=== PATIENT | male | born 1945 | race Caucasian/White ===

== ENCOUNTER 2016-12-19 08:38 | Inpatient (IN) | payer MEDICARE ==
[2016-11-07 15:13] VITALS: BMI 26.7
[~2016-12-19 08:38] MED LIST: NIMBEX 10 MG/5 ML VIAL IV ONE
[2016-12-19] MEDS ORDERED: LABETALOL 20 MG/4 ML SYRINGE IV PRN (08:54)
[2016-12-19] MEDS ORDERED: HYDROmorphone 1 MG INJECTION IV PRN ×2 (08:54)
[2016-12-19] MEDS ORDERED: hydrALAZINE 20 MG/ML VIAL IV PRN (08:54)
[2016-12-19] MEDS ORDERED: ONDANSETRON HCL 4 MG/2 ML VIAL IV PRN ×2 (08:54→13:10)
[2016-12-19] MEDS ORDERED: FENTANYL 100 MCG/2 ML VIAL IV PRN ×2 (08:54)
[2016-12-19] MEDS ORDERED: MEPERIDINE 25 MG/ML TUBEX IV PRN (08:54)
[2016-12-19] MEDS ORDERED: ONDANSETRON HCL 4 MG ODT TAB PO PRN (08:54)
--- NOTE | 2016-12-19 08:58 | HIM.ANES ---
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) - Focused Review of Systems Cardiac History: Yes: Hx Hypertension, Hx Afib/Aflutter (RESOLVED), Hx Cardiac Disorders, Hx Abnormal Cholesterol/Hyperlipidemia, Hx Congestive Heart Failure, Hx Deep Vein Thrombosis (12/2014) HEENT: Yes: Hx Vision Problem (PRESCRIPTION GLASSES), Other HEENT Problems Gastrointestinal: Yes: Hx Gastroesophageal Reflux Disease, Hx Gastrointestinal Disorders, Hx Chronic Constipation, Hx Colonoscopy (11/08/2016 SIGMOID MASS) Neurological/Musculoskeletal: No: Hx Neurological Disorders Psychological: Yes Hx Anxiety, Yes Hx Depression, Yes Hx Mental/Emotional Disorders HX Other Psyco/Soc Problems: PTSD Blood/Autoimmune: Yes: Hx Anemia No: Hx Blood Transfusions, Hx AIDS, Hx Hepatitis (type) Smoking Status: Former smoker Hx Echocardiogram (date): Yes (12/28/2014 EF 60%, GRADE 1 DIASTOLIC DYSFUNCTION ) Surgical History: Yes: Back (2013 LUMBAR REPAIR WITH RODS) - Focused Physical Exam Mallampati: Class II Thyromental Distance: Greater than 3 Neck: Full Range of Motion Cardiovascular/Chest: Normal Respiratory: Lungs clear Any problems with anesthesia, including nausea and vomiting?: Yes (N&V) Any relatives with a history of Malignant Hyperthermia?: No Does the patient have a history of Motion Sickness-: Yes Other: Allergies Allergy/AdvReac Type Severity Reaction Status Date / Time No Known Allergies Allergy Verified 12/19/16 08:50 Home Medications Medication Instructions Recorded Last Taken Type Amlodipine Besylate 5 mg PO DAILY 11/07/16 12/19/16 06:00 History Citalopram (anti-depressant) 40 mg PO DAILY 11/07/16 12/18/16 06:00 History [Celexa] CloNIDine (Antihypertensive) 0.2 mg PO BID 11/07/16 12/19/16 06:00 History [Catapres] Lisinopril 40 mg PO HS 11/07/16 12/18/16 18:00 History Pravastatin Sodium 40 mg PO .EVERY OTHER DAY 11/07/16 12/17/16 History Ranitidine [Zantac] 150 mg PO DAILY PRN 11/07/16 11/07/16 History Trazodone HCl 100 mg PO HS 11/07/16 12/18/16 18:00 History Cholecalciferol (Vitamin D3) 2,000 units PO DAILY 12/13/16 12/18/16 06:00 History [Vitamin D3] Lisinopril/Hydrochlorothiazide 1 tab PO DAILY 12/13/16 12/19/16 06:00 History [Lisinopril-Hctz 20-12.5 mg Tab] Height and Weight Patient's height 5 ft 8 in Patient's weight 78.018 kg BMI 26.7 - Anesthetic Plan Anesthesia Type: General ASA Class: 3 -: I have examined this patient and reviewed the medical record. The patient has been assessed prior to anesthesia. Risks and benefits of anesthesia and anesthetic technique options have been discussed and all questions answered. The patient accepts the risk and desires me to proceed with the planned anesthetic.
[2016-12-19] MEDS ORDERED: ALVIMOPAN 12 MG CAP PO ONE (09:00)
[2016-12-19] MEDS ORDERED: BUPIVACAINE 0.5% 30 ML VIAL ONE (09:15)
[2016-12-19] MEDS ORDERED: GLYCOPYRROLATE 1 MG VIAL IM ONE (10:00)
[2016-12-19] MEDS ORDERED: LIDOCAINE 100 MG PFS IV ONE (10:00)
[2016-12-19] MEDS ORDERED: ERTAPENEM 1 GM in NS 100 ML IV ONE (10:00)
[2016-12-19] MEDS ORDERED: DEXAMETHASONE 4 MG/ML VIAL IV ONE (10:00)
[2016-12-19] MEDS ORDERED: PROPOFOL 200 MG/20 ML VIAL IV ONE (10:00)
[2016-12-19] MEDS ORDERED: ONDANSETRON HCL 4 MG/2 ML VIAL IV ONE (10:00)
[2016-12-19] MEDS ORDERED: FENTANYL 250 MCG/5 ML VIAL IV ONE (10:00)
[2016-12-19] MEDS ORDERED: hydrALAZINE 20 MG/ML VIAL IM ONE (10:00)
[2016-12-19] MEDS ORDERED: SUCCINYLCHOLINE 20 MG/1 ML INJ 10 ML MDV IV ONE (10:00)
[2016-12-19] MEDS ORDERED: NEOSTIGMINE 1 MG/1 ML (1:1000) INJ 10 ML MDV IM ONE (10:00)
[2016-12-19 11:06] LABS: LEUKOCYTES/URINE NEG (NEGATIVE); NITRITE/URINE NEG (NEGATIVE); URINE OCCULT BLOOD NEG (NEG/TRACE)
--- NOTE | 2016-12-19 11:40 | HIMOPRPT ---
DATE OF PROCEDURE: 12/19/16 PREOPERATIVE DIAGNOSIS: Sigmoid colon cancer, for the clinical staging please see the history and physical POSTOPERATIVE DIAGNOSIS: Same, final pathology pending PROCEDURE: Laparoscopic sigmoid colon resection with primary anastomosis, laparoscopic mobilization of splenic flexure SURGEON: Lavelle Woods M.D. ANESTHESIA: General endotracheal SPECIMEN: Sigmoid colon. SPONGE COUNT: Correct. PACKINGS AND DRAINS: None PATIENT CONDITION: Stable. ESTIMATED BLOOD LOSS: 13 cc. OPERATIVE FINDINGS AND TECHNIQUE: With consent, the patient was brought to the operative suite, placed in supine position. Following general anesthesia, Casiano catheter was placed. The abdomen and perineal/anal areas were prepped and draped in usual fashion. Upper midline incision was made. Dissection was carried along on the musculofascial layers down the level of the fascia and peritoneal cavity was entered under direct vision. . The GelPort apparatus was placed. Abdominal cavity was insufflated with carbon dioxide. Additional trocars were then placed. A 12-mm trocar was placed in the right lower quadrant and a 5-mm trocar was placed in the right suprapubic area. In each case, skin incision was made with skin knife and trocars in the peritoneal cavity under videoscopic guidance. The tattooed area of the sigmoid colon was easily identified. The inferior mesenteric vessels/sigmoid vessels were isolated. Left ureter was identified during its course and was not traumatized during the course of dissection. Inferior mesenteric/sigmoid vessels were stapled across using the laparoscopic [place] stapling device with a vascular load. Mobilization of splenic flexure was then undertaken, this proceeded without incident. Following this, pelvic dissection was undertaken and an appropriate site at the sacral promontory was chosen for the distal resection margin. Mesenteric vessels were ligated and divided with a combination of the Harmonic Scalpel as well the vascular stapling device. The proximal rectum was stapled across using the stapling device as well. The colon was exteriorized. Proximal resection margin was identified and was freed up. Pursestring device was placed around this. Sutures were placed to make the pursestring. Colon was cut, and specimen was passed off as the sigmoid colon. The specimen was opened on the back table and the sigmoid mass/biopsy- proven cancer was identified. Grossly the mass was at least 5 cm from the distal staple line. Serial sizing was then undertaken with the sizing device, the 29 EEA sizer fitted well and a 29 EEA stapling device was chosen for the anastomosis. The anvil was placed in the proximal colon and the pursestring device was tied around this. Following this, the certified first assistant went to the perineal area, and serial dilatation of the rectal stump was accomplished using the sizers. The 29 EEA stapling device was then placed up the anal canal. The post was brought out to just above the staple line of the rectal stump. The post was attached the anvil. The stapler device was closed, fired, and brought up the anal area. The 2 excellent complete donuts were noted. The pelvic area then irrigated with saline and the rigid proctosigmoidoscope was then placed through the anal verge, and air water leak test was performed, showing no evidence of any bubbles, no evidence of any air leak. Pelvic area was suctioned free. Abdominal cavity had been irrigated and dried . There was no bloody drainage. Hemostasis was achieved. The fascia of the 12 mm trocar site was closed with 0 Vicryl suture in interrupted fashion. Seprafilm was placed in the abdominal cavity. The midline upper abdominal incision and musculofascial layers were closed using 1 PDS loop in a running fashion. Wound was irrigated and dried. Each incision was injected with 0.5% Marcaine. Each incision was closed in subcuticular fashion using 4 Monocryl suture. Abdominal wound was cleansed and dried. Dressings were applied. The patient was subsequently awakened in the operative suite, extubated in the operative suite, taken to the recovery room in stable condition. Findings as described. At termination of procedure, all instrument, sponge, and needle counts were correct. Final pathology is pending.
[2016-12-19] MEDS ORDERED: HYDROmorphone 1 MG INJECTION ONE (12:00)
[2016-12-19] MEDS ORDERED: MORPHINE PCA 50 ML IV ONE (12:23)
--- NOTE | 2016-12-19 13:02 | SC.ANESPOS ---
Post-Anesthesia Note LOC: Fully Awake Post-Anesthesia Assessment: Awake, Returned to Baseline, Hemodynamically Stable , Pain Control Adequate Phase I & II Recovery Complete: Yes Apparent Anesthesia Complication: No : N - Vital Signs Blood Pressure: 174/74 Pulse: 97 Resp Rate: 16 O2 Sat: 92 Temp: 98.1 F
[2016-12-19] MEDS ORDERED: MORPHINE PCA 50 ML IV PRN (13:10)
[2016-12-19] MEDS ORDERED: ACETAMINOPHEN 650 MG SUPP PR PRN (13:10)
[2016-12-19] MEDS ORDERED: Albuterol/Ipratropium Neb 3 ML NEB NEB PRN (13:10)
[2016-12-19] MEDS ORDERED: LORAZEPAM 2 MG/ML VIAL IV PRN (13:10)
[2016-12-19] MEDS ORDERED: ZOLPIDEM TARTRATE 5 MG TAB PO PRN (13:10)
[2016-12-19] MEDS ORDERED: IBUPROFEN 600 MG TAB PO PRN (13:10)
[2016-12-19] MEDS ORDERED: ACETAMINOPHEN 325 MG/TAB TABLET PO PRN (13:10)
[2016-12-19] MEDS ORDERED: ENALAPRILAT 1.25 MG/ML VIAL IV PRN (13:10)
[2016-12-19] MEDS ORDERED: DIPHENHYDRAMINE 25 MG CAP PO PRN (13:10)
[2016-12-19] MEDS ORDERED: PROMETHAZINE 25 MG/ML VIAL IV PRN (13:10)
[2016-12-19] MEDS ORDERED: Vaccine Screening Complete SCH (14:00)
[2016-12-19] MEDS: LR 1,000 ML IV SCH ×2 (14:09→22:03)
[2016-12-19] MEDS: Famotidine 20 mg/50 ml RTU 20 MG/50 ML IVB IV SCH (14:13)
[2016-12-19] MEDS: CloNIDine 0.2 MG TAB PO SCH (20:10)
[2016-12-19] MEDS: TRAZODONE 100 MG TAB PO SCH (20:10)
[2016-12-19] MEDS: LISINOPRIL 40 MG TAB PO SCH (20:10)
[2016-12-19] MEDS: PRAVASTATIN 40 MG TABLET PO SCH (20:10)
[2016-12-19] MEDS: OXYCODONE HCL 5 MG TABLET PO PRN (21:39)
[2016-12-19] MEDS: ENOXAPARIN 40 MG/0.4 ML PFS SQ SCH (23:55)
[2016-12-20] MEDS: Famotidine 20 mg/50 ml RTU 20 MG/50 ML IVB IV SCH ×2 (01:17→13:48)
[2016-12-20] MEDS: hydrALAZINE 20 MG/ML VIAL IV PRN ×2 (02:03→23:10)
[2016-12-20 06:48] LABS: MPV 8.7 fL (7.4-10.4)
[2016-12-20 07:25] LABS: BLOOD UREA NITROGEN 21 MG/DL (9-20); CALCIUM 8.5 MG/DL (8.4-10.2); CALCULATED OSMOLALITY 271 MOs/Kg (270-290); CHLORIDE 101 mEq/L (98-107); GLUCOSE 132 MG/DL (70-99); SODIUM LEVEL 138 mEq/L (137-146)
--- NOTE | 2016-12-20 07:42 | PCM.SURGRO ---
- Subjective Post Op Day: 1 Patient: Reports: No Flatus, No Bowel Movement. Denies: Nausea, Vomiting - Objective / Physical Exam Vital Signs: Temperature: 98.1 F (12/20/16 05:12) HR: 90 (12/20/16 05:12)RR: 18 (12/20/16 06: 26) BP: 174/67 (12/20/16 05:12)Pulse Ox: 93 (12/20/16 05:12) General: Alert Respiratory: Diminished Cardiovascular: Regular rate and rhythm Gastrointestinal: Soft, Bowel Sounds (Hypoactive), Tender (Mild at the incisions ). negative: Distended Laboratory/Diagnostics Reviewed: Laboratory Results - last 24 hr 12/19/16 12/20/16 12/20/16 08:50 05:20 05:20 WBC 14.0 H RBC 4.45 L Hgb 12.9 L Hct 38.9 L MCV 87 MCH 28.9 MCHC 33.0 RDW 14.1 Plt Count 256 MPV 8.7 Sodium 138 Potassium 4.1 Chloride 101 Carbon Dioxide 26 Anion Gap 15 BUN 21 H Creatinine 1.20 Estimated GFR (MDRD) 60 Glucose 132 H Calculated Osmolality 271 Calcium 8.5 Urine Color Yellow Urine Clarity Clear Urine pH 5.0 Ur Specific [place] 1.015 Urine Protein Neg Urine Glucose (UA) Neg Urine Ketones 1+ H Urine Occult Blood Neg Urine Nitrite Neg Urine Bilirubin Neg Urine Urobilinogen 0.2 Ur Leukocyte Esterase Neg Urine RBC 2-5 H Urine WBC 2-5 H Urine Bacteria Few Hyaline Casts 5-10 H Urine Mucus Occ - Assessment and Plan (1) Cancer of sigmoid Resolved C18.7 - MALIGNANT NEOPLASM OF SIGMOID COLON Present on Admission: Yes Comment/Plan: Postop day 1. Await return of bowel function. Await pathology. Get Casiano out. Start to mobilize more. Continue sips of liquids p.o.. Try to wean oxygen off. Control hypertension with medical antihypertensives. Continue IV fluids. Continue COUNTY ENGINEER for pain control. Continue mechanical and chemo prophylaxis for DVT prevention.
[2016-12-20] MEDS: CloNIDine 0.2 MG TAB PO SCH ×2 (08:20→19:51)
[2016-12-20] MEDS: HYDROCHLOROTHIAZIDE 12.5 MG CAP PO SCH (08:20)
[2016-12-20] MEDS: Citalopram HBr 40 MG TABLET PO SCH (08:20)
[2016-12-20] MEDS: ALVIMOPAN 12 MG CAP PO SCH ×2 (08:20→19:51)
[2016-12-20] MEDS: AMLODIPINE 5 MG TAB PO SCH (08:20)
[2016-12-20] MEDS: LISINOPRIL 20 MG TAB PO SCH (08:21)
[2016-12-20] MEDS: LR 1,000 ML IV SCH ×2 (11:53)
[2016-12-20] MEDS: ENOXAPARIN 40 MG/0.4 ML PFS SQ SCH (17:03)
[2016-12-20] MEDS: LISINOPRIL 40 MG TAB PO SCH (19:51)
[2016-12-20] MEDS: TRAZODONE 100 MG TAB PO SCH (19:51)
[2016-12-20] MEDS: ENALAPRILAT 1.25 MG/ML VIAL IV PRN (22:05)
[2016-12-21] MEDS ORDERED: DILTIAZEM 25 MG/5 ML VIAL IV ONE ×3 (00:05→03:36)
[2016-12-21] MEDS: Famotidine 20 mg/50 ml RTU 20 MG/50 ML IVB IV SCH ×2 (02:03→14:52)
[2016-12-21] MEDS: LR 1,000 ML IV SCH ×2 (02:03→14:10)
[2016-12-21 05:12] LABS: BLOOD UREA NITROGEN 13 MG/DL (9-20); CALCIUM 8.4 MG/DL (8.4-10.2); CALCULATED OSMOLALITY 261 MOs/Kg (270-290); CHLORIDE 98 mEq/L (98-107); GLUCOSE 120 MG/DL (70-99); SODIUM LEVEL 135 mEq/L (137-146)
--- NOTE | 2016-12-21 08:01 | HIMCONSMED ---
Consultation Date: 12/21/16 Requesting Physician: Lavelle Woods Consulting Doctor: Belkys Garnett Consult Reason: Dysrhythmia Patient is a very pleasant 61-year-old gentleman who presented to our hospital for surgical treatment of a colon cancer. He has a history of hypertension atrial fibrillation deep venous thrombosis of the leg diastolic heart failure esophageal reflux hyperlipidemia and urinary retention. 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 He required 2 doses of 10 mg of doubt diltiazem and then a 3rd dose of 15 mg of diltiazem to bring his heart rates down. He then had a short stretch of nonsustained V-tach and then converted into sinus rhythm. He remained in atrial fibrillation for approximately 5 hours. Patient states he had a similar problem in the past and was treated by Dr. See in [place]. States that Dr. See had him on anticoagulation but then discontinued it. He does not take an aspirin or Plavix either. Dr. Woods has asked us to consult on the patient given these episodes last night. Chief Complaint: Heart rate of 160 during the night. - Past Medical and Surgical History Cardiac History: Reports: Atrial Fibrillation, Hypertension, Congestive Heart Failure (Diastolic), Hypercholesterolemia (Familial combined hyperlipidemia) GI/ History: Reports: PMH GI Yes/No Other Systemic History: Reports: Anemia (Post hemorrhagic) Psychological History: Reports: Depression, Anxiety. Denies: Substance Use Disorder Past Surgical History: Reports: Hernia Surgery (INGUINAL) Familial combined hyperlipidemia, deep venous thrombosis, male hypogonadism. Lumbar burst fracture, rib fractures, constipation, depression, Allergies No Known Allergies Allergy (Verified 12/19/16 08:50) Home Medications Amlodipine Besylate 5 mg PO DAILY 11/07/16 Citalopram (anti-depressant) [Celexa] 40 mg PO DAILY 11/07/16 CloNIDine (Antihypertensive) [Catapres] 0.2 mg PO BID 11/07/16 Lisinopril 40 mg PO HS 11/07/16 Pravastatin Sodium 40 mg PO .EVERY OTHER DAY 11/07/16 Ranitidine [Zantac] 150 mg PO DAILY PRN 11/07/16 Trazodone HCl 100 mg PO HS 11/07/16 Cholecalciferol (Vitamin D3) [Vitamin D3] 2,000 units PO DAILY 12/13/16 Lisinopril/Hydrochlorothiazide [Lisinopril-Hctz 20-12.5 mg Tab] 1 tab PO QAM 11/17 - Social History Travel Outside of [place] in the Last 3 Months?: No Smoking Status: Former smoker Social History: Denies: Alcohol Use, Substance Use Disorder - Family History Reports: Hypertension (MOTHER), Cardiac Disorders (FATHER-CHF). Denies: Diabetes, Cancer, Stroke - Review of Systems Constitutional: No Symptoms Reported Eyes: No Symptoms Reported (No blurry vision, visual changes, eye pain, or eye redness.) Ears: No Symptoms Reported (No ear pain or discharge) Nose: No Symptoms Reported (No nasal discharge/congestion or bleeding) Mouth: No Symptoms Reported (No oropharyngeal lesions or erythema) Throat/Neck: No Symptoms Reported (No throat pain or swelling.No oropharyngeal lesions or erythema.) Respiratory: No Symptoms Reported (No cough, wheezing, or shortness of breath.) Cardiovascular: Palpitations Gastrointestinal: No Symptoms Reported (No abdominal pain, nausea, vomiting, diarrhea, constipation, or bloody stool.) Genitourinary: No Symptoms Reported (No dysuria or hematuria.) Neurological: No Symptoms Reported (No headache, dizziness, seizures, or focal weakness.) Musculoskeletal:: No Symptoms Reported Integumentary: No Symptoms Reported (no rashes or lesions) Allergic/Immunologic: No Symptoms Reported (no rashes or lesions) Hematologic: No Symptoms Reported (No chronic anemia, bleeding, or easy bruising.), Other (Lymphatics- no lymph node swelling or pain.) Endocrine: No Symptoms Reported (No thyroid issues, polyuria, or polydipsia.) Psychiatric: No Symptoms Reported (Fully oriented, with normal and appropriate affect.) - Physical Exam Vital Signs: Initial Vitals Temperature 97.7 F 12/19/16 08:52 Pulse Rate 96 12/19/16 08:52 Respiratory Rate 18 12/19/16 08:52 Blood Pressure 207/93 H 12/19/16 08:52 Pulse Oxygen Saturation 96 12/19/16 08:52 Constitutional: No apparent distress, Alert (Awake, Fully oriented. Normal and appropriate affect.Well appearing. Well nourished.), Well nourished, Well appearing Oriented to: Time, Person, Place - HEENT Head: Normal (normocephalic, atraumatic.), Other (No cervical lymphadenopathy. No supraclavicular lymphadenopathy. Neck: No palpable mass, supple , trachea midline.) Eye: Normal (pupils equal, reactive to light, and round; EOMI, Sclera white) Oropharynx: Normal (Pharynx: Moist without exudate,Gums-no swelling, No oropharyngeal lesions or erythema, Mucous membranes are dry.) Nose: No Symptoms Reported (septum midline, Nares patent, without discharge or bleeding.) Respiratory: Normal - CTA (Clear to auscultation bilaterally. No wheezing, rales , rhonchi. Chest wall movements are symmetric. No use of accessory muscles to breathe.) Cardiovascular: Normal (RRR , Normal S1, S2. No murmurs, rubs, or gallops. PMI non-displaced. Carotids: no carotid bruits. No bradycardia or tachycardia. DP pulses 2+ bilaterally.) - GI Auscultation: Normal (normal active sounds) Palpation: Normal (Soft,non distended,nontender. No hepatosplenomegaly.) Tenderness: Non tender (No rebound or guarding) Weiss's Sign: Negative - Musculoskeletal Back: Normal (Non-Tender) Extremities: Normal (Normal tone, DP pulses 2+ bilaterally, No cyanosis or edema bilaterally, FROM bilaterally.) - Integumentary Skin: Normal (Clean, dry, and intact. No rashes. No lesions.) Lymphatics: Normal (No cervical lymphadenopathy. No supraclavicular lymphadenopathy.) - Neurologic Memory Impaired: Normal Motor Function: Normal (Motor 5/5 throughout.Normal tone, Pulses 2+ No cyanosis or edema, FROM) Cranial Nerve: Normal (CN II-XII intact sensation, strength 5/5) Cerebellar: Normal (Babinski: toes downgoing bilaterally. Intact Finger to nose. Sensory grossly intact to light touch. Intact rapid alternating movements bilaterally. No pronator drift.) Mood Description: Normal (Fully oriented. Normal and appropriate affect.) Perception: Normal (Normal and appropriate affect.) - Lab Results Laboratory Tests 12/19/16 12/20/16 12/20/16 08:50 05:20 05:20 WBC 14.0 H RBC 4.45 L Hgb 12.9 L Hct 38.9 L MCV 87 MCH 28.9 MCHC 33.0 RDW 14.1 Plt Count 256 MPV 8.7 Sodium 138 Potassium 4.1 Chloride 101 Carbon Dioxide 26 Anion Gap 15 BUN 21 H Creatinine 1.20 Estimated GFR (MDRD) 60 Glucose 132 H POC Capillary Glucose Calculated Osmolality 271 Calcium 8.5 Magnesium Urine Color Yellow Urine Clarity Clear Urine pH 5.0 Ur Specific [place] 1.015 Urine Protein Neg Urine Glucose (UA) Neg Urine Ketones 1+ H Urine Occult Blood Neg Urine Nitrite Neg Urine Bilirubin Neg Urine Urobilinogen 0.2 Ur Leukocyte Esterase Neg Urine RBC 2-5 H Urine WBC 2-5 H Urine Bacteria Few Hyaline Casts 5-10 H Urine Mucus Occ 12/20/16 12/21/16 12/21/16 23:15 03:45 03:45 WBC RBC Hgb Hct MCV MCH MCHC RDW Plt Count MPV Sodium 135 L Potassium 3.5 Chloride 98 Carbon Dioxide 32 Anion Gap 9 BUN 13 Creatinine 1.00 Estimated GFR (MDRD) > 60 Glucose 120 H POC Capillary Glucose 126 H Calculated Osmolality 261 L Calcium 8.4 Magnesium 1.70 Urine Color Urine Clarity Urine pH Ur Specific [place] Urine Protein Urine Glucose (UA) Urine Ketones Urine Occult Blood Urine Nitrite Urine Bilirubin Urine Urobilinogen Ur Leukocyte Esterase Urine RBC Urine WBC Urine Bacteria Hyaline Casts Urine Mucus - Diagnostic Findings EKG obtained December 21 at 8 minutes after midnight shows atrial fibrillation with rapid ventricular response with aberrantly conducted complexes. After patient receives 3 doses of IV diltiazem repeat EKG was obtained. On December 21 at 7:55 a.m. he has a normal sinus rhythm with normal EKG with normal axes and intervals. - Assessment (1) Atrial fibrillation with RVR I48.91 - UNSPECIFIED ATRIAL FIBRILLATION Acute Present on Admission: Yes Patient presented to the hospital in sinus rhythm however he does have a history of atrial fibrillation as is documented in the medical record. He then had another episode of atrial fibrillation he states to me that in the past he has had it when he has had procedures. He has been treated by Dr. Calderon who stopped his anticoagulation. I will discuss appropriate restarting of anticoagulation with Dr. Woods but I do believe the patient will require anticoagulation. I will also rule him out for myocardial infarction and check an echocardiogram. Given that this is a recurrent problem he would benefit from seeing a transition mgr this admission and have consulted Dr. Masterson (2) Hypertension I10 - ESSENTIAL (PRIMARY) HYPERTENSION Acute Present on Admission: Yes Qualifiers: Hypertension type: essential hypertension Qualified Code(s): I10 - Essential (primary) hypertension Continue home medications as you are doing. (3) Diastolic CHF I50.30 - UNSPECIFIED DIASTOLIC (CONGESTIVE) HEART FAILURE Acute Present on Admission: Yes Qualifiers: Congestive heart failure chronicity: chronic Qualified Code(s): I50.32 - Chronic diastolic (congestive) heart failure Patient with history of congestive heart failure that is diastolic. Currently he appears to be well compensated. I will check an echocardiogram. (4) Cancer of sigmoid C18.7 - MALIGNANT NEOPLASM OF SIGMOID COLON Resolved Present on Admission: Yes (5) Familial combined hyperlipidemia E78.4 - OTHER HYPERLIPIDEMIA Chronic Present on Admission: Yes Continue home medication regimen. (6) H/O deep venous thrombosis Z86.718 - PERSONAL HISTORY OF OTHER VENOUS THROMBOSIS AND EMBOLISM Acute (7) H/O urinary retention Z87.898 - PERSONAL HISTORY OF OTHER SPECIFIED CONDITIONS Chronic Present on Admission: Yes Will check postvoid residuals. Patient with a history of this documented in medical record. - Plan Will consult Dr. Masterson. Check echocardiogram and rule out for myocardial infarction. Continue telemetry monitoring. Will discuss with Dr. Woods regarding anticoagulation. Case Care Discussed with: Patient, Consultants (Dr. Masterson, Dr. Woods), Nursing Staff Total Time: 55 minutes. Critical Care: No Couseling Time (>50% in counseling/coordination): No
--- NOTE | 2016-12-21 09:35 | PCM.CARDCO ---
Consultation Date: 12/21/16 Requesting Physician: Belkys Garnett Pattern Grader: Jasson Masterson - History of Present Illness He is a 71-year-old man retired with a background history of previous episode of atrial fibrillation who at 1 time been anticoagulated. Postop early developed brief recurrent rapid atrial fibrillation and converted to sinus rhythm after rate control. He has had no other clinical episodes no complaints of chest pain dyspnea or syncope. Today he feels well. His chads 2 score is 3 and I favor resuming anticoagulation with his high risk of stroke. Clinically the precipitant here is high catecholamines after surgery, I placed him on a beta-josé miguel and intensify his antihypertensive treatment. Chief Complaint: Paroxysmal atrial fibrillation - Past Medical and Surgical History Cardiac History: Reports: Atrial Fibrillation (Chads 2 Vasc score equals 2), Hypertension, Congestive Heart Failure (Diastolic), Hypercholesterolemia ( Familial combined hyperlipidemia) GI/ History: Reports: PMH GI Yes/No Other Systemic History: Reports: Anemia (Post hemorrhagic) Psychological History: Reports: Depression, Anxiety. Denies: Alcoholism, Substance Use Disorder Past Surgical History: Reports: Hernia Surgery (INGUINAL) Allergies No Known Allergies Allergy (Verified 12/19/16 08:50) Home Medications Amlodipine Besylate 5 mg PO DAILY 11/07/16 Citalopram (anti-depressant) [Celexa] 40 mg PO DAILY 11/07/16 CloNIDine (Antihypertensive) [Catapres] 0.2 mg PO BID 11/07/16 Lisinopril 40 mg PO HS 11/07/16 Pravastatin Sodium 40 mg PO .EVERY OTHER DAY 11/07/16 Ranitidine [Zantac] 150 mg PO DAILY PRN 11/07/16 Trazodone HCl 100 mg PO HS 11/07/16 Cholecalciferol (Vitamin D3) [Vitamin D3] 2,000 units PO DAILY 12/13/16 Lisinopril/Hydrochlorothiazide [Lisinopril-Hctz 20-12.5 mg Tab] 1 tab PO QAM 11/17 - Social History Travel Outside of [place] in the Last 3 Months?: No Smoking Status: Former smoker Social History: Denies: Alcohol Use, Substance Use Disorder - Family History Reports: Hypertension (MOTHER), Cardiac Disorders (FATHER-CHF). Denies: Diabetes, Cancer, Stroke - Review of Systems Yes All systems reviewed and were negative except as marked Constitutional: No Symptoms Reported - Cardiovascular Palpitations - Gastrointestinal Gastrointestinal: Other (NG tube remains in place) - Physical Exam Constitutional: No apparent distress, Alert (Awake, Fully oriented. Normal and appropriate affect.Well appearing. Well nourished.), Well nourished, Well appearing, Other (Looks younger than his age) Oriented to: Time, Person, Place Exam: Last Vital Signs Temp 99.7 F 12/21/16 05:55 Pulse 140 H 12/21/16 05:55 Resp 18 12/21/16 06:00 BP 151/71 12/21/16 05:55 Pulse Ox 95 12/21/16 05:55 Intake & Output 12/20/16 12/21/16 12/21/16 23:59 07:59 15:59 Intake Total 1046 602 Output Total 800 1200 Balance 246 -598 Patient's weight 172 lb 4.8 oz - HEENT Head: Normal (No bruit thyromegaly or neck vein distention), Other (No cervical lymphadenopathy. No supraclavicular lymphadenopathy. Neck: No palpable mass, supple , trachea midline.) Eye: Normal (pupils equal, reactive to light, and round; EOMI, Sclera white) Oropharynx: Normal (Pharynx: Moist without exudate,Gums-no swelling, No oropharyngeal lesions or erythema, Mucous membranes are dry.) Nose: No Symptoms Reported (septum midline, Nares patent, without discharge or bleeding.) - Respiratory/Cardiovascular Respiratory: Normal - CTA (Clear to auscultation bilaterally. No wheezing, rales , rhonchi. Chest wall movements are symmetric. No use of accessory muscles to breathe.) Cardiovascular: Normal. negative: Systolic murmur, Gallop/S3 - GI Auscultation: Normal Palpation: Normal (Soft,non distended,nontender. No hepatosplenomegaly.) Tenderness: Non tender (No rebound or guarding) - Musculoskeletal Back: Normal (Non-Tender) Extremities: Normal (Normal tone, DP pulses 2+ bilaterally, No cyanosis or edema bilaterally, FROM bilaterally.), Femoral Pulse, Pedal Pulse, Radial Pulse. negative: Calf Tenderness, Clubbing, Cyanosis, Edema, Pedal Edema - Integumentary Skin: Normal (Clean, dry, and intact. No rashes. No lesions.), Dry. negative: Diaphoretic, Pale, Mottling, Jaundice Lymphatics: Normal (No cervical lymphadenopathy. No supraclavicular lymphadenopathy.) - Neurologic Memory Impaired: Normal Cerebellar: Normal (Babinski: toes downgoing bilaterally. Intact Finger to nose. Sensory grossly intact to light touch. Intact rapid alternating movements bilaterally. No pronator drift.) Mood Description: Normal (Fully oriented. Normal and appropriate affect.) Perception: Normal (Normal and appropriate affect.) - Lab Results Monitor strip shows in sinus rhythm today Echocardiogram is normal with exception of mild left atrial enlargement Laboratory Tests 12/20/16 12/21/16 12/21/16 05:20 03:45 08:23 WBC 14.0 H Hgb 12.9 L Hct 38.9 L Potassium 3.5 Creatinine 1.00 Troponin I 0.10 12/21/16 12/21/16 11:00 14:15 WBC Hgb Hct Potassium Creatinine Troponin I 0.08 0.08 - Assessment/Plan (1) Atrial fibrillation with RVR I48.91 - UNSPECIFIED ATRIAL FIBRILLATION Acute Comment: Paroxysmal heard his chads 2 Vasc score is 3 and should be anticoagulated long- term once he is judged to be acceptable bleeding risk after surgery. The episode occurred in the postoperative state with high catecholamines and I would place him on a beta-josé miguel and if he has recurrent episodes consider an anti arrhythmic. He will Require cardiology follow-up afterwards. For completeness I would check a postoperative troponin. Also check thyroid TSH tomorrow for completeness. (2) Diastolic CHF I50.30 - UNSPECIFIED DIASTOLIC (CONGESTIVE) HEART FAILURE Chronic chronic I50.32 - Chronic diastolic (congestive) heart failure Comment: Compensated note he is not on loop diuretic. His indices of diastolic function do not show elevated filling pressures at this time. (3) Hypertension I10 - ESSENTIAL (PRIMARY) HYPERTENSION Acute essential hypertension I10 - Essential (primary) hypertension Comment: Poorly controlled, started on carvedilol and was given extra dose of clonidine. Case Care Discussed with: Patient, Nursing Staff
[2016-12-21] MEDS: CloNIDine 0.2 MG TAB PO SCH ×2 (10:18→20:59)
[2016-12-21] MEDS: AMLODIPINE 5 MG TAB PO SCH (10:19)
[2016-12-21] MEDS: Citalopram HBr 40 MG TABLET PO SCH (10:20)
[2016-12-21] MEDS: LISINOPRIL 20 MG TAB PO SCH (10:21)
[2016-12-21] MEDS: HYDROCHLOROTHIAZIDE 12.5 MG CAP PO SCH (10:21)
[2016-12-21] MEDS: ALVIMOPAN 12 MG CAP PO SCH ×2 (10:22→20:59)
[2016-12-21] MEDS: ENALAPRILAT 1.25 MG/ML VIAL IV PRN ×2 (11:50→22:09)
[2016-12-21] MEDS: hydrALAZINE 20 MG/ML VIAL IV PRN ×2 (12:31→23:23)
--- NOTE | 2016-12-21 13:25 | PCM.SURGRO ---
- Subjective Chief Complaint: Patient reportedly went into atrial fibrillation with rapid ventricular response and also had a run of ventricular tachycardia. The hospitalist service was kind enough to handle these medical issues. However I was not informed of any of these from the nursing staff last night. Dr. Villa was kind enough to inform me of the patient's clinical status this morning. The hospitalist service has been kind enough to consult and has consulted Cardiology for further management. Patient states that he has some abdominal pain currently. He denies any flatus or bowel movement. He states he has burped but has had no nausea or vomiting. He has had no fever spikes. His dysrhythmia responded to diltiazem. Remains on the monitor now. Post Op Day: 2 Patient: Reports: Other - Objective / Physical Exam Vital Signs: Temperature: 99.8 F (12/21/16 11:50) HR: 90 (12/21/16 12:34)RR: 18 (12/21/16 12: 00) BP: 207/83 (12/21/16 12:34)Pulse Ox: 99 (12/21/16 11:50) General: Alert Respiratory: Diminished Cardiovascular: Regular rate and rhythm Gastrointestinal: Soft, Tender (Mild at the incisions). negative: Distended, Bowel Sounds Laboratory/Diagnostics Reviewed: Laboratory Results - last 24 hr 12/20/16 12/21/16 12/21/16 23:15 03:45 03:45 Sodium 135 L Potassium 3.5 Chloride 98 Carbon Dioxide 32 Anion Gap 9 BUN 13 Creatinine 1.00 Estimated GFR (MDRD) > 60 Glucose 120 H POC Capillary Glucose 126 H Calculated Osmolality 261 L Calcium 8.4 Magnesium 1.70 Troponin I 12/21/16 12/21/16 08:23 11:00 Sodium Potassium Chloride Carbon Dioxide Anion Gap BUN Creatinine Estimated GFR (MDRD) Glucose POC Capillary Glucose Calculated Osmolality Calcium Magnesium Troponin I 0.10 0.08 - Assessment and Plan (1) 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 Await pathology. Await return of bowel function. Continue IV fluids for now. Continue pain control. Appreciate greatly the consultations for Medicine and Cardiology due to the patient's dysrhythmia. He is being appropriately managed currently. I would hold off at least another day to fully anticoagulate him. He can likely be fully anticoagulated starting 2016. Continue medical and cardiac management of his comorbid conditions.
[2016-12-21] MEDS ORDERED: CloNIDine 0.2 MG TAB PO ONE (14:00)
--- NOTE | 2016-12-21 16:12 | CAPUEKG ---
[place], [place] Test Date: 2016-12-21 Pat Name: CRISTINA JESUS Department: Room: 359 Gender: Male Reconciling Clerk: : Requested By: Order Number: Reading MD: Jasson Masterson MD Measurements Intervals [place] Rate: 88 P: 41 AR: 134 QRS: 2 QRSD: 88 T: 58 QT: 356 QTc: 430 Interpretive Statements Normal sinus rhythm Normal ECG Electronically Signed On 12-21-16 16:11:50 EST by Jasson Masterson MD <[id number]> [id number]
--- NOTE | 2016-12-21 16:13 | CAPUEKG ---
[place], [place] Test Date: 2016-12-21 Pat Name: CRISTINA JESUS Department: Room: 359 Gender: Male Medical Laboratory Technicians: : Requested By: Order Number: Reading MD: Jasson Masterson MD Measurements Intervals [place] Rate: 163 P: ME: QRS: -3 QRSD: 88 T: 154 QT: 292 QTc: 480 Interpretive Statements Atrial fibrillation with rapid ventricular response with premature ventricular or aberrantly conducted complexes Nonspecific ST and T wave abnormality, probably digitalis effect Abnormal ECG Electronically Signed On 12-21-16 16:13:08 EST by Jasson Masterson MD <[id number]> [id number]
[2016-12-21] MEDS: Aluminum;Magnesium;Simethicone 30 ML UDC PO PRN (18:43)
[2016-12-21] MEDS: ENOXAPARIN 40 MG/0.4 ML PFS SQ SCH (18:43)
[2016-12-21] MEDS: PRAVASTATIN 40 MG TABLET PO SCH (20:59)
[2016-12-21] MEDS: LISINOPRIL 40 MG TAB PO SCH (20:59)
[2016-12-21] MEDS: TRAZODONE 100 MG TAB PO SCH (20:59)
[2016-12-22] MEDS: Aluminum;Magnesium;Simethicone 30 ML UDC PO PRN (00:32)
[2016-12-22] MEDS: Famotidine 20 mg/50 ml RTU 20 MG/50 ML IVB IV SCH ×2 (02:41→14:13)
[2016-12-22] MEDS: LR 1,000 ML IV SCH ×3 (05:31→18:21)
[2016-12-22] MEDS: LISINOPRIL 20 MG TAB PO SCH (08:44)
[2016-12-22] MEDS: HYDROCHLOROTHIAZIDE 12.5 MG CAP PO SCH (08:44)
[2016-12-22] MEDS: AMLODIPINE 5 MG TAB PO SCH (08:44)
[2016-12-22] MEDS: Citalopram HBr 40 MG TABLET PO SCH (08:44)
[2016-12-22] MEDS: CloNIDine 0.2 MG TAB PO SCH ×2 (08:45→21:50)
[2016-12-22 09:59] LABS: hTSH 2.04 uIU/mL (0.5-4.67)
--- NOTE | 2016-12-22 10:38 | PCM.SURGRO ---
- Subjective Chief Complaint: incisional soreness Post Op Day: 3 (laparoscopic sigmoid colon resection) Patient: Reports: Feels better (Patient reports that he feels better today.), Bowel Movement (Patient reports three bowel movements.), Afebrile, Other ( Patient currently sitting up in chair. He denies chest pain, shortness of breath or difficulty breathing.). Denies: Voiding without difficulty (Casiano catheter in.), Nausea, Vomiting, Shortness of breath, Ambulating (Patient states that he has not ambulated in the taf[place] today.) - Objective / Physical Exam Vital Signs: Temperature: 98.9 F (12/22/16 10:24) HR: 79 (12/22/16 10:24)RR: 20 (12/22/16 10: 24) BP: 114/54 (12/22/16 10:24)Pulse Ox: 93 (12/22/16 10:24) General: Alert, Oriented x3, Cooperative, No acute distress HEENT: Normal, Anicteric Sclera, Mucous membr. moist/pink Respiratory: Normal - CTA Cardiovascular: Regular rate and rhythm Gastrointestinal: Soft, Bowel Sounds, Other (dressings intact.). negative: Distended, Tender Extremities: negative: Swelling, Edema Psych/Mental Status: Appropriate, Normal Affect, Cooperative. 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 We will continue supportive care. We will plan to increase diet and activity. Okay to start full anticoagulation from a surgical standpoint.
--- NOTE | 2016-12-22 12:23 | CAPUEKG ---
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
--- NOTE | 2016-12-22 16:45 | GENMEDPROG ---
Chief Complaint: Postop AFib RVR Subjective Note: Patient is feeling somewhat better. He understands his history of atrial fibrillation. He is willing to go on anticoagulation again. He plans to follow up with Dr. Masterson as an outpatient. Denies chest pain or shortness of breath. Current Medication List: Reviewed Currently: Reports: Abdominal Pain (Controlled). Denies: Cough, Wheezing, YEUNG, SOB, Chest Pain DVT Prophylaxis: Yes - Physical Examination Vital Signs and I&O: Last Vital Signs Temp 97.4 F L 12/22/16 14:42 Pulse 70 12/22/16 14:42 Resp 20 12/22/16 14:42 BP 128/60 12/22/16 14:42 Pulse Ox 95 12/22/16 14:42 Oxygen Pulse Oxygen Saturation 95 O2 Device Room Air Oxygen Flow Rate 1 Fraction of Inspired Oxygen ( 100 FIO2) Intake & Output 12/19/16 12/20/16 12/21/16 12/22/16 23:59 23:59 23:59 23:59 Intake Total 847 2744 2153 1111 Output Total 1325 1400 3175 1400 Balance -478 1344 -1022 -289 Patient's weight 76.884 kg 77.61 kg 78.154 kg 77.819 kg General: Alert, Oriented x3, Cooperative, No acute distress HEENT: Anicteric Sclera, Mucous membr. moist/pink Neck: Normal inspection Lymphatics: Normal Respiratory: Normal - CTA Cardiovascular: Regular rate and rhythm. negative: LE Edema GI: Normal bowel sounds, Other (Rest of exam per surgery) Extremities/Musculoskeletal: Muscle Tone. negative: Swelling, Edema Skin: Warm,Dry and Intact Neurological: Normal speech, Normal tone Psych/Mental Status: Appropriate, Normal Affect, Cooperative. negative: Agitated, Anxious Lab/DI/Studies Reviewed: 12/20/16 05:20 12/21/16 03:45 Intake & Output 12/19/16 12/20/16 12/21/16 12/22/16 23:59 23:59 23:59 23:59 Intake Total 847 2744 2153 2142 Output Total 1325 1400 3175 1600 Balance -478 1344 -1022 542 Patient's weight 76.884 kg 77.61 kg 78.154 kg 77.819 kg - Assessment (1) Atrial fibrillation with RVR Acute I48.91 - UNSPECIFIED ATRIAL FIBRILLATION Comment/Plan: He is back in sinus rhythm with addition of a beta-josé miguel. Appreciate Dr. Masterson help. The patient is willing to undergo anticoagulation. Dr. Clark note today states he he is ready for it. The patient recalls being on Eliquis in the past. (2) Hypertension Acute I10 - ESSENTIAL (PRIMARY) HYPERTENSION Qualifiers: Hypertension type: essential hypertension Qualified Code(s): I10 - Essential (primary) hypertension Comment/Plan: Continue home medications in addition to the beta-josé miguel (3) Diastolic CHF Chronic I50.30 - UNSPECIFIED DIASTOLIC (CONGESTIVE) HEART FAILURE Qualifiers: Congestive heart failure chronicity: chronic Qualified Code(s): I50.32 - Chronic diastolic (congestive) heart failure Comment/Plan: CHF is compensated without a diuretic. 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 Management per surgery (5) Familial combined hyperlipidemia Chronic E78.4 - OTHER HYPERLIPIDEMIA Comment/Plan: Continue home medication regimen. (6) H/O deep venous thrombosis Chronic Z86.718 - PERSONAL HISTORY OF OTHER VENOUS THROMBOSIS AND EMBOLISM Comment/Plan: Will be started on anticoagulation for AFib which will cover this (7) H/O urinary retention Chronic Z87.898 - PERSONAL HISTORY OF OTHER SPECIFIED CONDITIONS Comment/ Plan: Will check postvoid residuals. Patient with a history of this documented in medical record. Case Care Discussed with: Patient, Family Education/Counseling Given To: Patient, Family Member Education/Counseling Given Regarding: Diagnosis, Treatment, Prognosis Total Time: 35 minutes Critical Care: No Couseling Time (>50% in counseling/coordination): No Code: 52852 (12+)
[2016-12-22] MEDS: ENOXAPARIN 40 MG/0.4 ML PFS SQ SCH (17:03)
[2016-12-22] MEDS: TRAZODONE 100 MG TAB PO SCH (21:50)
[2016-12-22] MEDS: LISINOPRIL 40 MG TAB PO SCH (21:50)
[2016-12-23] MEDS: Famotidine 20 mg/50 ml RTU 20 MG/50 ML IVB IV SCH ×2 (01:24→13:06)
[2016-12-23] MEDS: hydrALAZINE 20 MG/ML VIAL IV PRN (05:16)
[2016-12-23] MEDS: LR 1,000 ML IV SCH ×3 (08:28→22:41)
[2016-12-23] MEDS: Citalopram HBr 40 MG TABLET PO SCH (08:28)
[2016-12-23] MEDS: AMLODIPINE 5 MG TAB PO SCH (08:29)
[2016-12-23] MEDS: LISINOPRIL 20 MG TAB PO SCH (08:29)
[2016-12-23] MEDS: CloNIDine 0.2 MG TAB PO SCH ×2 (08:29→20:31)
[2016-12-23] MEDS: HYDROCHLOROTHIAZIDE 12.5 MG CAP PO SCH (08:29)
[2016-12-23] MEDS: APIXABAN 5 MG TABLET PO SCH ×2 (08:29→20:31)
--- NOTE | 2016-12-23 15:09 | PCM.SURGRO ---
- Subjective Chief Complaint: postoperative day #4 Post Op Day: 4 (laparoscopic sigmoid colon resection with primary anastomosis) Patient: Reports: Feels better, Pain is less, Tolerating Regular Diet, Flatus, Bowel Movement, Afebrile, Ambulating in [place], Other (The patient denies chest pain or difficulty breathing.). Denies: Nausea, Vomiting, Shortness of breath - Objective / Physical Exam Vital Signs: Temperature: 98.4 F (12/23/16 14:00) HR: 72 (12/23/16 14:00)RR: 18 (12/23/16 14: 00) BP: 184/74 (12/23/16 14:00)Pulse Ox: 96 (12/23/16 14:00) General: Alert, Oriented x3, Cooperative, No acute distress HEENT: Normal, Anicteric Sclera, Mucous membr. moist/pink Respiratory: Normal - CTA Cardiovascular: Regular rate and rhythm Gastrointestinal: Soft, Bowel Sounds. negative: Distended, Tender, Guarding, Firm, Rigid, Hernia Extremities: negative: Swelling, Edema Psych/Mental Status: Appropriate, Normal Affect, Cooperative. 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 We will continue supportive care. Anticipate discharge in the next day or two. I discussed the treatment plan with the patient. All questions were answered. He voiced understanding and agreement.
--- NOTE | 2016-12-23 15:13 | GENMEDPROG ---
Subjective Note: Denies any chest pain or shortness of breath. Has been ambulating some. Feels his postoperative abdominal pain is controlled. Current Medication List: Reviewed Currently: Reports: Abdominal Pain (Controlled), Ambulating. Denies: Cough, Wheezing, YEUNG, SOB, Chest Pain DVT Prophylaxis: Yes - Physical Examination Vital Signs and I&O: Last Vital Signs Temp 98.4 F 12/23/16 14:00 Pulse 72 12/23/16 14:00 Resp 18 12/23/16 14:00 BP 184/74 H 12/23/16 14:00 Pulse Ox 96 12/23/16 14:00 Oxygen Pulse Oxygen Saturation 96 O2 Device Room Air Oxygen Flow Rate 1 Fraction of Inspired Oxygen ( 100 FIO2) Intake & Output 12/20/16 12/21/16 12/22/16 12/23/16 23:59 23:59 23:59 23:59 Intake Total 2744 2153 2142 888 Output Total 1400 3175 1600 2375 Balance 1344 -1022 542 -1487 Patient's weight 77.61 kg 78.154 kg 77.819 kg 78.245 kg General: Alert, Oriented x3, Cooperative, No acute distress HEENT: Normal, Anicteric Sclera, Mucous membr. moist/pink Neck: Normal Trachea alignment, Normal inspection Lymphatics: Normal Respiratory: Normal - CTA Cardiovascular: Regular rate and rhythm. negative: LE Edema GI: Soft Extremities/Musculoskeletal: negative: Swelling, Edema Skin: Warm,Dry and Intact, No rashes Psych/Mental Status: Appropriate, Normal Affect, Cooperative. negative: Agitated, Anxious - Assessment (1) Atrial fibrillation with RVR Acute I48.91 - UNSPECIFIED ATRIAL FIBRILLATION Comment/Plan: Patient is in sinus rhythm. Will continue with the beta-josé miguel. Eliquis was added yesterday. (2) Hypertension Acute I10 - ESSENTIAL (PRIMARY) HYPERTENSION Qualifiers: Hypertension type: essential hypertension Qualified Code(s): I10 - Essential (primary) hypertension Comment/Plan: Blood pressure continues to be mildly elevated at times. Will monitor. It is unclear if this is related to pain or not. His heart rate has been stable with his blood pressure is up. (3) Diastolic CHF Chronic I50.30 - UNSPECIFIED DIASTOLIC (CONGESTIVE) HEART FAILURE Qualifiers: Congestive heart failure chronicity: chronic Qualified Code(s): I50.32 - Chronic diastolic (congestive) heart failure Comment/Plan: CHF is compensated without a diuretic. 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 Management per surgery (5) Familial combined hyperlipidemia Chronic E78.4 - OTHER HYPERLIPIDEMIA Comment/Plan: Continue home medication regimen. (6) H/O deep venous thrombosis Chronic Z86.718 - PERSONAL HISTORY OF OTHER VENOUS THROMBOSIS AND EMBOLISM Comment/Plan: Will be started on anticoagulation for AFib which will cover this (7) H/O urinary retention Chronic Z87.898 - PERSONAL HISTORY OF OTHER SPECIFIED CONDITIONS Comment/ Plan: Will check postvoid residuals. Patient with a history of this documented in medical record. Case Care Discussed with: Patient, Consultants Education/Counseling Given To: Patient Education/Counseling Given Regarding: Diagnosis, Treatment Total Time: 30 minutes Critical Care: No Couseling Time (>50% in counseling/coordination): No Code: 12789 (12+)
[2016-12-23] MEDS: PRAVASTATIN 40 MG TABLET PO SCH (20:31)
[2016-12-23] MEDS: LISINOPRIL 40 MG TAB PO SCH (20:31)
[2016-12-23] MEDS: FAMOTIDINE 20 MG TAB PO SCH (20:31)
[2016-12-23] MEDS: TRAZODONE 100 MG TAB PO SCH (20:31)
[2016-12-23] MEDS: CARVEDILOL 6.25 MG TAB PO SCH (20:47)
[2016-12-24] MEDS: ENALAPRILAT 1.25 MG/ML VIAL IV PRN ×2 (02:59→18:07)
--- NOTE | 2016-12-24 08:06 | PCM.SURGRO ---
- Subjective Post Op Day: 5 Patient: Reports: Flatus, Bowel Movement. Denies: Nausea, Vomiting - Objective / Physical Exam Vital Signs: Temperature: 98.8 F (12/24/16 05:28) HR: 65 (12/24/16 05:28)RR: 18 (12/24/16 05: 28) BP: 175/85 (12/24/16 05:28)Pulse Ox: 93 (12/24/16 05:28) General: Alert Respiratory: Normal - CTA Cardiovascular: Regular rate and rhythm Gastrointestinal: Soft, Bowel Sounds. negative: Distended, Tender - Assessment and Plan (1) Cancer of sigmoid Resolved C18.7 - MALIGNANT NEOPLASM OF SIGMOID COLON Present on Admission: Yes Comment/Plan: Postop day 5. He has a normal sinus rhythm now. Patient is moving his bowels. He is tolerating regular diet well. He has a stable candidate for discharge home. However the patient states that he require assistance home. He states that his is ill and is unable to care for him. Will have discharge planning involved to see if we can come up with the discharge plan of either home with home health/physical therapy, an in-home nurse, or possible placement. Patient understands this. His pathology is back and was discussed. He has a stage I colon cancer.
[2016-12-24] MEDS: CloNIDine 0.2 MG TAB PO SCH ×2 (08:49→23:07)
[2016-12-24] MEDS: CARVEDILOL 6.25 MG TAB PO SCH ×2 (08:50→23:06)
[2016-12-24] MEDS: APIXABAN 5 MG TABLET PO SCH ×2 (08:50→23:06)
[2016-12-24] MEDS: Citalopram HBr 40 MG TABLET PO SCH (08:50)
[2016-12-24] MEDS: AMLODIPINE 5 MG TAB PO SCH (08:51)
[2016-12-24] MEDS: HYDROCHLOROTHIAZIDE 12.5 MG CAP PO SCH (08:51)
[2016-12-24] MEDS: FAMOTIDINE 20 MG TAB PO SCH ×2 (08:51→23:08)
[2016-12-24] MEDS ORDERED: Pharmacy Change IV Fluid Rate to KVO XX SCH (09:00)
[2016-12-24] MEDS: LISINOPRIL 20 MG TAB PO SCH (09:34)
[2016-12-24] MEDS ORDERED: AMLODIPINE 5 MG TAB PO ONE (10:55)
--- NOTE | 2016-12-24 10:59 | GENMEDPROG ---
Subjective Note: Patient denies chest pain or shortness of breath. He has had no increased heart rate. He does recall that in the past he was on metoprolol after his back surgery. This medication was ultimately discontinued because of low heart rate. He is presently on a low-dose of Coreg and I will not increase the dose because of his history. His blood pressure is elevated today. He states his blood pressure is usually better controlled at home. He gets most of his follow -up at the [place]. He denies any headache or visual changes. Current Medication List: Reviewed Currently: Reports: Abdominal Pain (Controlled), Ambulating. Denies: Cough, Wheezing, YEUNG, SOB, Chest Pain DVT Prophylaxis: Yes - Physical Examination Vital Signs and I&O: Last Vital Signs Temp 98.3 F 12/24/16 09:25 Pulse 67 12/24/16 09:25 Resp 18 12/24/16 10:00 BP 187/74 H 12/24/16 08:46 Pulse Ox 92 12/24/16 09:25 Oxygen Pulse Oxygen Saturation 92 O2 Device Room Air Oxygen Flow Rate 1 Fraction of Inspired Oxygen ( 100 FIO2) Intake & Output 12/21/16 12/22/16 12/23/16 12/24/16 23:59 23:59 23:59 23:59 Intake Total 2153 2142 2398 504 Output Total 3170 1600 3050 450 Balance -1022 542 -202 54 Patient's weight 78.154 kg 77.819 kg 78.245 kg 78.562 kg General: Alert, Oriented x3, Cooperative, No acute distress HEENT: Anicteric Sclera, Mucous membr. moist/pink Neck: Normal inspection, No Masses palpable Respiratory: Normal - CTA Cardiovascular: Regular rate and rhythm. negative: LE Edema GI: Normal bowel sounds, Soft, Non tender Extremities/Musculoskeletal: Normal pulses Skin: Warm,Dry and Intact Neurological: Normal speech, Strength at 5/5 X4 ext, Normal tone Psych/Mental Status: Appropriate Lab/DI/Studies Reviewed: Intake & Output 12/21/16 12/22/16 12/23/16 12/24/16 23:59 23:59 23:59 23:59 Intake Total 2153 2142 2398 504 Output Total 3179 1600 3050 450 Balance -1022 652 -812 54 Patient's weight 78.154 kg 77.819 kg 78.245 kg 78.562 kg - Assessment (1) Atrial fibrillation with RVR Acute I48.91 - UNSPECIFIED ATRIAL FIBRILLATION Comment/Plan: Still in sinus rhythm. Continue with Coreg at a low dose. He has had difficulty with low heart rates on metoprolol in the past. Continue Eliquis. I have explained to the patient that both the Coreg and Eliquis are twice daily. (2) Hypertension Acute I10 - ESSENTIAL (PRIMARY) HYPERTENSION Qualifiers: Hypertension type: essential hypertension Qualified Code(s): I10 - Essential (primary) hypertension Comment/Plan: Blood pressure continues to be elevated. I will increase his Norvasc from 5 mg to 10. His blood pressure follow up is usually at the [place]. He does have local medical care with Dr. Enamorado. He does check his blood pressures at home. (3) Diastolic CHF Chronic I50.30 - UNSPECIFIED DIASTOLIC (CONGESTIVE) HEART FAILURE Qualifiers: Congestive heart failure chronicity: chronic Qualified Code(s): I50.32 - Chronic diastolic (congestive) heart failure Comment/Plan: CHF is compensated without a diuretic. 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 Management per surgery (5) Familial combined hyperlipidemia Chronic E78.4 - OTHER HYPERLIPIDEMIA Comment/Plan: Continue home medication regimen. (6) H/O deep venous thrombosis Chronic Z86.718 - PERSONAL HISTORY OF OTHER VENOUS THROMBOSIS AND EMBOLISM Comment/Plan: Will be started on anticoagulation for AFib which will cover this (7) H/O urinary retention Chronic Z87.898 - PERSONAL HISTORY OF OTHER SPECIFIED CONDITIONS Comment/ Plan: No issues with urination postop so far. - Plan The patient can be discharged any time from a medical perspective. During this hospitalization his amlodipine was increased from 5 mg once a day to 10 mg once a day. Coreg was added 6.25 mg p.o. twice daily. Eliquis 5 mg p.o. twice daily was added for anticoagulation. Case Care Discussed with: Patient Education/Counseling Given To: Patient Education/Counseling Given Regarding: Diagnosis, Treatment, Prognosis Total Time: 35 minutes Critical Care: No Couseling Time (>50% in counseling/coordination): No Code: 96170 (12+)
[2016-12-24] MEDS: LR 1,000 ML IV SCH (13:10)
[2016-12-24] MEDS: LISINOPRIL 40 MG TAB PO SCH (23:05)
[2016-12-24] MEDS: TRAZODONE 100 MG TAB PO SCH (23:08)
[2016-12-24] MEDS: OXYCODONE HCL 5 MG TABLET PO PRN (23:13)
[2016-12-25] MEDS: hydrALAZINE 20 MG/ML VIAL IV PRN (00:18)
[2016-12-25] MEDS: CloNIDine 0.2 MG TAB PO SCH (05:55)
[2016-12-25] MEDS: FAMOTIDINE 20 MG TAB PO SCH (05:55)
[2016-12-25] MEDS: CARVEDILOL 6.25 MG TAB PO SCH (05:56)
[2016-12-25] MEDS: LISINOPRIL 20 MG TAB PO SCH (05:56)
[2016-12-25] MEDS: HYDROCHLOROTHIAZIDE 12.5 MG CAP PO SCH (05:57)
[2016-12-25] MEDS: ENALAPRILAT 1.25 MG/ML VIAL IV PRN (06:05)
[2016-12-25] MEDS: LR 1,000 ML IV SCH ×2 (06:27→12:00)
--- NOTE | 2016-12-25 08:16 | PCM.DCS92 ---
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 Bowel function has returned. He had atrial fibrillation which now rate controlled and in normal sinus rhythm. He is anticoagulated. Plan discharge home today. Follow up in the office. Pathology is as noted. He will need medical follow-up and cardiology follow-up as well. Discharge Disposition: Discharge w/ Home Health (Home health for wound checks and physical therapy) Discharge Condition: Stable Cognitive Discharge Status: Unimpaired Fuctional Discharge Status: Deconditioning, Post-op Weakness Physician Follow up/Referrals: Lavelle Woods MD [Staff Physician] - Keep Scheduled Appt Jasson Masterson MD [Staff Physician] - Call for Appointment Chase Enamorado MD [Primary Care Provider] - Call for Appointment Home Medications/ New Prescriptions: New Carvedilol [Coreg] 6.25 mg PO BID #60 tab Apixaban [Eliquis] 5 mg PO BID #60 tablet Amlodipine [Norvasc] 10 mg PO DAILY #30 tab Oxycodone Immediate Release [Oxy-Ir] 5 mg PO Q4H PRN #40 tab PRN Reason: Pain Promethazine HCl [Phenergan] 12.5 mg PO Q6 PRN #30 tablet PRN Reason: Nausea/Vomiting Continue CloNIDine (Antihypertensive) [Catapres] 0.2 mg PO BID Pravastatin Sodium 40 mg PO .EVERY OTHER DAY Citalopram (anti-depressant) [Celexa] 40 mg PO DAILY Trazodone HCl 100 mg PO HS Lisinopril 40 mg PO HS Ranitidine [Zantac] 150 mg PO DAILY PRN PRN Reason: Acid Reflux Lisinopril/Hydrochlorothiazide [Lisinopril-Hctz 20-12.5 mg Tab] 1 tab PO QAM Cholecalciferol (Vitamin D3) [Vitamin D3] 2,000 units PO DAILY Discontinued Amlodipine Besylate 5 mg PO DAILY Diet at Discharge: As Tolerated Activity: No Heavy Lifting, No Driving Call Office For: Worsening Symptoms, Wound is Draining Pus, Fever over 101 F Discontinue use of:: Alcohol, All Illegal Substances, All Types of Tobacco - DC Summary Notes Home Health Need / [facility] Services:: Home health see for wound checks and physical therapy as well as in-home assistance. Hospital Course Note:: Discharge summary on patient named CRISTINA JESUS admitted to [facility] on 12/19/16 by Lavelle Woods MD. Date of discharge is 12/25/2016. Patient was admitted for laparoscopic sigmoid colectomy. He successfully underwent this. Pathology is as noted. He has stayed 1 sigmoid cancer which is likely cured with surgery. He required nasal cannula oxygen for several days postoperatively but was wean from the successfully. He went into rapid atrial fibrillation postoperatively and was seen by Medicine and Cardiology. He was subsequently anticoagulated. Medications were adjusted his rhythm converted to sinus and became rate controlled. He had issues with hypertension through hospitalization and the hospital service manage this by changing medications and adding medications. Please see the discharge medication list for details of his discharge antihypertensives. Patient will need follow-up from primary care as well as Cardiology. He will re-see me in the office in approximately 1 week. By postop day 6., the patient was deemed stable candidate for discharge home. He has tolerated regular diet well. He was moving his bowels well. He is voiding well. He had no nausea or vomiting. Incisions were still dressed and were intact. Discharge instructions were discussed at length the patient. He determined that he would need home health for assistance at home as he is an ill who cannot care for him. In addition his daughter is not able to be around as she works. Home health was consulted on the electronic medical record for wound checks, physical therapy, and home assistance. The patient was subsequently discharged in stable condition. Wound Care Surgical Site: Yes Site Description (if applicable): Abdomen May Shower Starting:: Today Remove Clear Dressing In How Many Days?: Seven Ability To Perform Care (if applicable): No (Home health see at home for wound checks and physical therapy) - Physical Exam Vital Signs: Initial Vitals Temperature 97.7 F 12/19/16 08:52 Pulse Rate 96 12/19/16 08:52 Respiratory Rate 18 12/19/16 08:52 Blood Pressure 207/93 H 12/19/16 08:52 Pulse Oxygen Saturation 96 12/19/16 08:52 Constitutional: No apparent distress Respiratory: Normal - CTA Cardiovascular: Normal - GI Auscultation: Normal Palpation: Normal Tenderness: Non tender
[2016-12-25] MEDS ORDERED: AMLODIPINE 10 MG TAB PO SCH (09:00)
[2016-12-25 10:08] VITALS: PULSE 60; TEMP 98.1
[2016-12-25] MEDS: Citalopram HBr 40 MG TABLET PO SCH (10:10)
[2016-12-25] MEDS: APIXABAN 5 MG TABLET PO SCH (10:10)
[2016-12-25 10:14] VITALS: BP 151/69
== END 2016-12-25 13:37 | disposition home health service (06) | DRG 330 ==
LOC: SDC 08:38 → MPS3 13:06
PROVIDERS: ADMIT Surgery Vascular Surgery; ATTEND Surgery Vascular Surgery
PROC: 0DTN4ZZ Resection of Sigmoid Colon, Percutaneous Endoscopic Approach (ICD-10-PCS; principal; 2016-12-19 09:25)
DX: C18.7 Malignant neoplasm of sigmoid colon (principal); I47.2 Ventricular tachycardia; I50.32 Chronic diastolic (congestive) heart failure; I48.0 Paroxysmal atrial fibrillation; I97.89 Other postprocedural complications and disorders of the circulatory system, not elsewhere classified; Z79.899 Other long term (current) drug therapy; I10 Essential (primary) hypertension; Z86.718 Personal history of other venous thrombosis and embolism; F32.9 Major depressive disorder, single episode, unspecified; K21.9 Gastro-esophageal reflux disease without esophagitis; E78.4 Other hyperlipidemia; E29.1 Testicular hypofunction; Z87.891 Personal history of nicotine dependence; Z87.898 Personal history of other specified conditions
CPT/HCPCS: 51701; 51798; 80048; 80061; 81001; 82962; 83735; 84443; 84484; 85027; 87641; 93005; 93306; 96372; G0237; J0330; J0360; J1100; J1170; J1335; J1650; J2001; J2060; J2405; J2710; J3010; J3490; J7030; S0028